=== PATIENT | female | born 1950 | race African-American/Black ===

== ENCOUNTER 2024-07-25 07:53 | Emergency (ER) | payer MEDICARE ==
[~2024-07-25] VITALS: Ht 172.7 cm; Wt 80.0 kg
[2024-07-25 08:06] VITALS: TEMP 98
[2024-07-25 09:14] LABS: BASOPHILS % (AUTO) 0.6 % (0.0-2.0); EOSINOPHILS % (AUTO) 6.8 % (1.0-6.0); HEMATOCRIT 37.6 % (36-46); LYMPHOCYTES # (AUTO) 0.9 K/uL (1.0-4.8); LYMPHOCYTES % (AUTO) 36.1 % (22.0-44.0); MEAN CORPUSCULAR HGB CONC 31.8 G/dL (31.0-37.0); MEAN CORPUSCULAR VOLUME 88 fL (80-100); MONOCYTES # (AUTO) 0.3 K/uL (0.1-1.0); MONOCYTES % (AUTO) 13.7 % (2.0-9.0); NEUTROPHILS % (AUTO) 42.8 % (40.0-70.0); PLATELET COUNT (AUTO) 187 K/uL (150-450); RED BLOOD CELL COUNT(AUTO) 4.27 MIL/uL (4.00-5.20); RED CELL DISTRIBUTION WIDTH 14.3 % (11.5-14.5); WHITE BLOOD COUNT (AUTO) 2.4 K/uL (4.5-11.0)
[2024-07-25] MEDS: NITROGLYCERIN 2% (1 GM=INCH) OINTMENT PACKET TP ONE (09:24)
[2024-07-25 09:25] VITALS: BP 177/92; PULSE 84; RESP 16; O2SAT 99
[2024-07-25 09:26] LABS: ANION GAP 7 mmol/L (8-16); CALCIUM, TOTAL 9.1 mg/dL (8.8-10.5); CARBON DIOXIDE 30 mmol/L (22-29); CHLORIDE 104 mmol/L (98-107); CREATININE 0.83 mg/dL (0.60-1.30); GLOMERULAR FILTR. RATE CALC > 60 mL/min (>60); GLUCOSE,RANDOM 99 mg/dL (70-110); SODIUM SERUM 141 mmol/L (136-145); UREA NITROGEN, BLOOD 14 mg/dL (7-18)
[2024-07-25 09:27] LABS: PROTHROMBIN TIME 10.8 SEC (9.4-11.6)
[2024-07-25 09:31] LABS: B-TYPE NATRIURETIC PEPTIDE 74 pg/mL (0-100)
[2024-07-25 09:32] LABS: CREATINE KINASE, TOTAL ONLY 190 U/L (26-192); TROPONIN I-HIGH SENSITIVITY 11 ng/L (<51)
[2024-07-25] MEDS: IBUPROFEN 400 MG TABLET PO ONE (10:05)
== END 2024-07-25 10:16 | disposition left against medical advice (07) ==
LOC: EMS 07:55
DX: M25.512 Pain in left shoulder (principal); R07.89 Other chest pain; R51.9 Headache, unspecified; I10 Essential (primary) hypertension; Z90.710 Acquired absence of both cervix and uterus; Z95.5 Presence of coronary angioplasty implant and graft
CPT/HCPCS: 80048; 82550; 83880; 84484; 85025; 85610; 85730; 93005; 99284

== ENCOUNTER 2025-01-02 15:17 | Inpatient (IN) | payer MEDICARE ==
[~2025-01-02] VITALS: Ht 170.2 cm; Wt 79.3 kg
[2025-01-02 15:35] VITALS: TEMP 98
[2025-01-02 15:45] LABS: PLATELET COUNT (AUTO) 185 K/uL (150-450); RED BLOOD CELL COUNT(AUTO) 3.58 MIL/uL (4.00-5.20); RED CELL DISTRIBUTION WIDTH 14.2 % (11.5-14.5); WHITE BLOOD COUNT (AUTO) 2.6 K/uL (4.5-11.0)
[2025-01-02 15:54] LABS: CALCIUM, TOTAL 8.1 mg/dL (8.8-10.5); CREATININE 0.81 mg/dL (0.60-1.30); GLOMERULAR FILTR. RATE CALC > 60 mL/min (>60); GLUCOSE,RANDOM 103 mg/dL (70-110); SODIUM SERUM 130 mmol/L (136-145); UREA NITROGEN, BLOOD 20 mg/dL (7-18)
[2025-01-02 15:58] LABS: ASPARTATE AMINOTRANSFERASE 26.0 U/L (15-37); CREATINE KINASE, TOTAL ONLY 276.0 U/L (26-192); TOTAL PROTEIN, SERUM 6.7 g/dL (6.4-8.2)
[2025-01-02 16:00] LABS: TROPONIN I-HIGH SENSITIVITY 9 ng/L (<51)
[2025-01-02] MEDS ORDERED: ROSU5TAB17 PO (16:31)
[2025-01-02] MEDS ORDERED: MIDO5TAB5 PO (16:31)
[2025-01-02] MEDS ORDERED: OMEP20CA12 PO (16:31)
[2025-01-02] MEDS ORDERED: BENA1TAB18 PO (16:31)
[2025-01-02] MEDS ORDERED: LATA2.5D7 OU (16:31)
[2025-01-02] MEDS ORDERED: POTASSIUM CHL 10 MEQ/WATER 50 ML IV PRN (16:45)
[2025-01-02] MEDS ORDERED: ACETAMINOPHEN 325 MG TABLET PO PRN (16:45)
[2025-01-02] MEDS ORDERED: MAGNESIUM HYDROXIDE SUSPENSION 30 ML UDCUP PO PRN (16:45)
[2025-01-02] MEDS: MAG HYDROX/ALUMINUM HYD/SIMETH 30 ML SUSPENSION UDCUP PO ONE (17:15)
[2025-01-02] MEDS: POTASSIUM CHLORIDE 20 MEQ ER TABLET PO PRN (17:15)
[2025-01-02] MEDS: SODIUM CHLORIDE 0.9% 1,000 ML IV ONE (17:33)
[2025-01-02] MEDS: ONDANSETRON HCL 4 MG/2 ML VIAL IVP PRN (17:33)
[2025-01-02] MEDS: MORPHINE SULFATE 2 MG/ML SYRINGE IVP ONE (17:34)
[2025-01-02] MEDS: FAMOTIDINE 20 MG/2 ML VIAL IVP ONE (17:34)
[2025-01-02 17:45] VITALS: BP 153/66; PULSE 69; RESP 17; O2SAT 100
[2025-01-02 18:02] LABS: TROPONIN I-HIGH SENSITIVITY 12 ng/L (<51)
[2025-01-02 19:29] LABS: TROPONIN I-HIGH SENSITIVITY 11 ng/L (<51)
[2025-01-02 19:47] LABS: APPEARANCE,URINE CLEAR (CLEAR); GLUCOSE, URINE (UA) NEGATIVE (NEGATIVE); LEUKOCYTE ESTERASE ,URINE NEGATIVE (NEGATIVE); NITRATE,URINE NEGATIVE (NEGATIVE); OCCULT BLOOD,URINE NEGATIVE (NEGATIVE); SPECIFIC GRAVITIY, URINE 1.005 (1.003-1.030)
[2025-01-02] MEDS ORDERED: DOCUSATE SODIUM 100 MG CAPSULE PO SCH (21:00)
[2025-01-02] MEDS ORDERED: ATORVASTATIN CALCIUM 20 MG TABLET PO SCH (21:00)
[2025-01-03] MEDS ORDERED: HEPARIN SODIUM,PORCINE 5,000 UNITS/ML VIAL SQ SCH
[2025-01-03] MEDS ORDERED: FAMOTIDINE 20 MG TABLET PO SCH (09:00)
[2025-01-03] MEDS ORDERED: ASPIRIN 81 MG CHEWABLE TABLET PO SCH (09:00)
== END 2025-01-02 19:50 | disposition left against medical advice (07) | DRG 313 ==
LOC: EMS 15:17 → EDH 16:32
PROVIDERS: ADMIT Internal Medicine; ATTEND Internal Medicine
DX: R07.89 Other chest pain (principal); E87.1 Hypo-osmolality and hyponatremia; I25.10 Atherosclerotic heart disease of native coronary artery without angina pectoris; E87.6 Hypokalemia; I10 Essential (primary) hypertension; Z53.29 Procedure and treatment not carried out because of patient's decision for other reasons; Z90.710 Acquired absence of both cervix and uterus; Z95.5 Presence of coronary angioplasty implant and graft
CPT/HCPCS: 80048; 80076; 81003; 82550; 83880; 84484; 85025; 85610; 85730; 93005; 93306; 99285; G0378; J2270; J2405; J3490; J7030